=== PATIENT | female | born 1960 | race Caucasian/White ===

== ENCOUNTER 2019-03-31 08:54 | Emergency (ER) | payer OTHER ==
[2019-03-31 09:26] VITALS: BP 172/87; PULSE 91; RESP 18; TEMP 98
--- NOTE | 2019-03-31 09:55 | XR ---
EXAMINATION TYPE: XR foot complete RT, XR ankle complete RT DATE OF EXAM: 03/31/2019 CLINICAL HISTORY: Right foot and ankle pain missing a step one day ago TECHNIQUE: Frontal, lateral and oblique images of the right ankle and foot are obtained. COMPARISON: None. FINDINGS: There is no acute fracture/dislocation evident in the right ankle. The ankle mortise appe ars within normal limits. The overlying soft tissue appears unremarkable. There is no acute fracture or dislocation evident in the right foot. The joint spaces in the right foot are preserved. There i s mild diffuse osseous demineralization and degenerative changes of the distal interphalangeal joints and first metatarsophalangeal joint. Very small Achilles heel spur. Incidentally noted Loera's toe. Overlying soft tissue is unremarkable. IMPRESSION: There is no acute fracture or dislocation in the right ankle or foot.
--- NOTE | 2019-03-31 10:45 | ED ---
General Adult HPI - General Chief complaint: Extremity Injury, Lower Stated complaint: ankle pain Time Seen by Provider: 03/31/19 09:53 Source: patient, RN notes reviewed Mode of arrival: wheelchair Limitations: no limitations - History of Present Illness Initial comments: 58-year-old female presents to the emergency department for a chief complaint of right ankle and foot pain times one day. Patient states she was climbing down a ladder yesterday when she twisted her right ankle and foot after missing the last rung. States that it is painful to walk on but she is limping around on it. Denies any other injuries. Denies hitting her head. States the pain is mostly on the lateral aspect and across the top of the right foot.Patient has no other complaints at this time including shortness of breath, chest pain, abdominal pain, nausea or vomiting, headache, or visual changes. - Related Data Allergies Allergy/AdvReac Type Severity Reaction Status Date / Time Penicillins Allergy Rash/Hives Verified 03/31/19 09:23 Review of Systems ROS Statement: Those systems with pertinent positive or pertinent negative responses have been documented in the HPI. ROS Other: All systems not noted in ROS Statement are negative. Past Medical History Past Medical History: Hypertension History of Any Multi-Drug Resistant Organisms: None Reported Past Surgical History: No Surgical Hx Reported Past Psychological History: No Psychological Hx Reported Smoking Status: Current every day smoker Past Alcohol Use History: None Reported Past Drug Use History: None Reported General Exam Limitations: no limitations General appearance: alert, in no apparent distress Head exam: Present: atraumatic, normocephalic, normal inspection Eye exam: Present: normal appearance, PERRL, EOMI. Absent: scleral icterus, conjunctival injection, periorbital swelling ENT exam: Present: normal exam, mucous membranes moist Neck exam: Present: normal inspection, full ROM. Absent: tenderness, meningismus, lymphadenopathy Respiratory exam: Present: normal lung sounds bilaterally. Absent: respiratory distress, wheezes, rales, rhonchi, stridor Cardiovascular Exam: Present: regular rate, normal rhythm, normal heart sounds. Absent: systolic murmur, diastolic murmur, rubs, gallop, clicks Extremities exam: Present: full ROM (Full range of motion of the right foot.), tenderness (Tenderness noted along the occipital fifth metatarsal as well as the dorsum of the right foot and lateral malleolus of the right ankle. No medial malleoli or tenderness.), normal capillary refill (Capillary refill less than 2 seconds. DP pulses 2+.), joint swelling (Patient does have some edema noted of the dorsal aspect of the right foot as well as lateral right ankle. There is no ecchymosis or contusion including on the bottom of the foot.), other (Sensation is intact in the right lower extremity. Patient has pain with weightbearing.). Absent: calf tenderness Course Vital Signs 03/31/19 09:23 Temperature 98.0 F Pulse Rate 91 Respiratory 18 Rate Blood Pressure 172/87 O2 Sat by Pulse 96 Oximetry Medical Decision Making - Medical Decision Making 58-year-old female presents for a chief complaint of right foot pain. This has been ongoing since yesterday when she twisted her right foot and ankle while cl imbing down a ladder. On exam she does have some edema noted to the dorsum of the right foot as well as tenderness to the dorsum of the right foot and lateral malleolus. Neurovascular status intact in the right lower extremity. X-ray shows no acute fracture or dislocation. However given patient's pain with ambulation and weightbearing as well as edema patient will be splinted in a posterior short leg due to concern for occult fracture. She will follow up with orthopedics. She'll be given crutches. She'll return if she has any worsening symptoms. Disposition Clinical Impression: Right foot injury Disposition: HOME SELF-CARE Condition: Good Instructions (If sedation given, give patient instructions): Foot Contusion (ED) Additional Instructions: Please follow up with orthopedics in one to 2 days. Take Motrin and Tylenol for pain. Rest ice and elevate the right foot. Use crutches. Return to the emergency department if you have any worsening symptoms. Is patient prescribed a controlled substance at d/c from ED?: No Referrals: Dee Burden MD [Primary Care Provider] - 1-2 days Rudy Alan DO [Doctor of Osteopathic Medicine] - 1-2 days Time of Disposition: 10:44
== END 2019-03-31 10:53 | disposition home or self-care (01) ==
LOC: EC 08:54
DX: S99.921A Unspecified injury of right foot, initial encounter (principal); F17.200 Nicotine dependence, unspecified, uncomplicated; Z88.0 Allergy status to penicillin; X50.1XXA Overexertion from prolonged static or awkward postures, initial encounter
CPT/HCPCS: 29515; 99283